=== PATIENT | male | born 1955 | race Caucasian/White ===

== ENCOUNTER 2024-04-01 11:57 | Emergency (ER) | payer OTHER, SELFPAY ==
[2024-04-01] VITALS (52 sets, daily range): BP systolic 105–169; BP diastolic 67–109; PULSE 51–87; TEMP 36.5; O2SAT 94–100; BMI 24.4
--- NOTE | 2024-04-01 12:20 | ED_ITS ---
HPI HPI - General Adult General Chief complaint: Extremity Injury, Upper Stated complaint: UPPER EXTREMITY INJURY, LEFT Time Seen by Provider: 04/01/24 12:19 Source: patient Mode of arrival: Wheelchair History of Present Illness HPI narrative: Patient presenting to the emergency department for evaluation of left upper extremity pain. Patient states that he was walking 2 dogs, another dog was coming at him, and the dogs he was walking pulled. Patient states that he has had pain in pain, decreased range of motion of the left shoulder. Did not fall the ground, did not hit his head, is only having pain in the shoulder. No complaints at this time Related Data Home Medications ?Medication ?Instructions ?Recorded ?Confirmed No Known Home Medications 04/01/24 04/01/24 Allergies Allergy/AdvReac Type Severity Reaction Status Date / Time No Known Drug Allergies Allergy Verified 04/01/24 12:05 Opioid HPI Opioid Management Most Recent Opioid Data: Last Pain Scale 10 04/01/24 12:58 Last MAR Pain Assessment 04/01/24 12:23 Review of Systems ROS Narrative Negative unless otherwise stated in the HPI Exam Narrative Exam Narrative: General: NAD, AAOx3, no distress Respiratory: respiratory effort normal, speaks in full sentences, no tripod position, no accessory muscle use. Lungs clear to auscultation without rhonchi, wheezes, rales Cardiac: Regular rate and rhythm, no edema, regular s1/s2, no m/g/r Abdomen: Soft, ND/NT. No evidence of fluid wave. No pulsatile masses on exam, rebound tenderness, Hernandez sign or pain over Mcburney's point. Ext: Left upper extremity tenderness at the left shoulder, decreased flexion, extension, abduction and adduction secondary to pain, deformity and defect was noted at the glenohumeral joint Skin: Warm, pink and dry. No rashes, dermatoses, petechiae or lesions, 2+ distal pulses, normal sensation and motor other than left upper extremity secondary to pain limitation. Neuro: Speech is clear and appropriate. Normal level of consciousness. Gait and coordination are normal. 5/5 strength in all extremities. Constitutional Vital Signs, click to edit/add: Last Vital Signs Temp 97.7 F 04/01/24 12:01 Pulse 57 L 04/01/24 15:14 Resp 16 04/01/24 15:14 BP 113/77 04/01/24 15:14 Pulse Ox 96 10/06/24 15:14 O2 Del Method Nasal Cannula 04/01/24 12:44 O2 Flow Rate 0 04/01/24 15:14 Course Vital Signs Vital signs: Vital Signs Temperature 97.7 F 04/01/24 12:01 Pulse Rate 60 04/01/24 12:01 Respiratory Rate 18 04/01/24 12:01 Blood Pressure 110/78 04/01/24 12:01 Pulse Oximetry 98 04/01/24 12:01 Oxygen Delivery Method Room Air 04/01/24 12:01 Temperature 97.7 F 04/01/24 12:01 Pulse Rate 57 L 04/01/24 15:14 Respiratory Rate 16 04/01/24 15:14 Blood Pressure 113/77 04/01/24 15:14 Pulse Oximetry 96 04/01/24 15:14 Oxygen Delivery Method Nasal Cannula 04/01/24 12:44 Oxygen Delivery Flow Rate 0 04/01/24 15:14 Medical Decision Making MDM Narrative Medical decision making narrative: [facility] Patient with history as above presented with left shoulder pain. History obtained from patient. Patient was nontoxic, stable. Ambulatory. Exam as above. EKG reviewed. Labs reviewed. Independently reviewed imaging. Reviewed external records. Differential diagnosis considered. Overall presentation is consistent with Left shoulder dislocation 1325 patient has been given bolus of ketamine, 1 mg/kg, traction, countert raction with external rotation was used, reduced without difficulty. 1545 patient has been observed to greater than 60 minutes after his sedation is ended. Patient is alert, oriented x 3, awake, talkative. X-ray results showing potential for scapular abnormality, correlating with point tenderness. Patient has no pain or tenderness to the scapula, did not fall onto his back, shoulder, he was jerked forward and fell just onto the left shoulder with the arm outstretched. Patient was reevaluated multiple times and still has had no pain to the scapula. Likely not clinically correlating. Advanced guidance has been given. Vss, pex is benign at this time. Pt to fu with pcp 1-2 days for reeval, rter should sx worsen, persist or become worrysome in any way. All incidental laboratory studies, EKG, radiologic findings have been noted and discussed with patient. Patient was reevaluated with a benign exam at this time. Pt expressed understanding and agreement with plan of care at this time. Will fu as planned. Pt stable for discharge. Medical Records Medical records reviewed: Yes I reviewed the patient's medical records Discharge Plan Discharge Chief Complaint: Extremity Injury, Upper Clinical Impression: Anterior shoulder dislocation Patient Disposition: Home, Self-Care Time of Disposition Decision: 15:44 Condition: Good Prescriptions / Home Meds: No Action No Known Home Medications Print Language: Greek Additional Instructions: Follow-up with your PCP in the next 1 to 2 days. Return to the emergency department should symptoms worsen or become worrisome in any way. Referrals: MAGO FLOWER [Primary Care Provider] - 1 week Procedures ED Orthopedic Joint Reduction Orthopedic Joint Reduction Joint #1: Time out performed: Yes Side: left Joint reduction location: shoulder Analgesia: procedural sedation Shoulder technique used (if applicable): traction/counter-traction and external rotation Post-reduction neuro exam: intact and no change Post-reduction vascular exam: intact and no change Post-reduction x-ray obtained: Yes Post-reduction x-ray results: other Splint applied: Yes Patient tolerated procedure: well
[2024-04-01] MEDS: MORPHINE SULFATE 4 MG/ML VIAL IV (12:23)
--- NOTE | 2024-04-01 12:30 | XR_ITS ---
The [address] [address] Patient Name: RUDDY PICKERING MRN: [id number] date: 1955 Sex: M Assigned Patient Location: ER Current Patient Location: Accession/Order Number: [id number] Exam Date: 04/01/2024 12:20 Report Date: 04/01/2024 13:32 At the request of: NIKOLE GOODWIN Procedure: XR shoulder LT min 2V EXAM: XR shoulder LT min 2V HISTORY: pain COMPARISON: None. TECHNIQUE: 2 views of left shoulder were obtained. FINDINGS: There is inferior and the anterior dislocation of the humeral head at the glenohumeral joint. There is no clear evidence of a fracture. XR/XR shoulder LT min 2V IMPRESSION: Dislocation of the humeral head. Electronically authenticated by: RAJ CHARLTON Date: 04/01/2024 13:32
--- NOTE | 2024-04-01 13:23 | XR_ITS ---
The [place] [id number] Patient Name: RUDDY PICKERING MRN: [id number] date: 1955 Sex: M Assigned Patient Location: ER Current Patient Location: Accession/Order Number: [id number] Exam Date: 04/01/2024 13:28 Report Date: 04/01/2024 15:29 At the request of: NIKOLE GOODWIN Procedure: XR shoulder LT 1V EXAM: XR shoulder LT 1V HISTORY: post reduction COMPARISON: 04/01/2024 TECHNIQUE: A single view of the left shoulder is performed. FINDINGS: There has been successful reduction of the glenohumeral dislocation. There is slight irregularity to the lateral margin of the scapula. Please clinically correlate for point tenderness in this region. XR/XR shoulder LT 1V IMPRESSION: Reduction of the previously seen dislocation. Slight irregularity to the lateral margin of the scapular body. Please clinically correlate for point tenderness in this region. A dedicated scapular series can be performed, as clinically indicated. Electronically authenticated by: TWYLA MERCADO Date: 04/01/2024 15:29
[2024-04-01] MEDS: KETAMINE HCL 500 MG/5 ML VIAL 80 MG IV (13:28)
== END 2024-04-01 16:21 | disposition home or self-care (01) ==
PROVIDERS: Emergency Provider Emergency Medicine
DX: S43.005A Unspecified dislocation of left shoulder joint, initial encounter (principal); X50.0XXA Overexertion from strenuous movement or load, initial encounter
CPT/HCPCS: 23650; 73020; 73030; 96374; 96375; 99285; J2270

== ENCOUNTER 2025-02-23 18:59 | Emergency (ER) | payer OTHER, SELFPAY ==
--- OUTSIDE RECORDS SUMMARY | 2025-02-23 19:06 | XMS_ITS | CCD ---
Author Organization [facility] Inform ion Partnership [facility] Care Team Providers Care Corpsman Name Role Phone SHAIKH Rafaela BOO Admitting Unavailable SHAIKH Rafaela BOO Attending Unavailable SHAIKH Rafaela BOO Primary Care Unavailable SHAIKH Rafaela BOO Consulting Unavailable Cait KENNEDY, Unavailable Arlen Snyder MD Primary Care Provider Sammy CERVANTES, [place] Unavailable [phone] Sammy [employer], [place] Unavailable [phone] PRANAV MORALES Attending Unavailable ARLEN SNYDER Attending Unavailable JUANA FLOWER Attending Unavailabl e Problems Active Problems Problem Classification Problem Date Documented Da te Episodic/Chronic Abdominal hernia (8 sources) Recurrent right inguinal hernia; Translations: [Unilateral inguinal hernia, without obstruction or gangrene, recurrent] Onset: 11-15-2024 Resolved: 02-07-2025 11-15-2024 Episodic Administrative/social admission (1 source) Persons encountering health services in other specified circumstances; Translations: [PERS ENC [facility] OTH CIRCUMSTANCE] Onset: 04-15-2022 Episodic Disorders of lipid metabolism (1 source) Hyperlipidemia, unspecified; Translations: [HYPERLIPIDEMIA UNSPECIFIED] Onset: 04-15-2022 Chronic Other circulatory disease (4 sources) Elevated blood-pressure reading, without diagnosis of hypertension; Translations: [ELEVATED BP READING W/O DX HTN] Onset: 04-13-2022 Episodic Past or Other Problems Problem Classification Problem Date Documented Da te Episodic/Chronic Joint disorders and dislocations; trauma-related (7 sources) Dislocation of shoulder joint; Translations: [Unspecified dislocation of left shoulder joint, subsequent encounter] Onset: 04-10-2024 Resolved: 02-07-2025 4 Episodic Mood disorders (2 sources) Mood disorders Onset: 02-07-2025 02-07-2025 Other circulatory disease (7 sources) Elevated blood-pressure reading without diagnosis of hypertension; Translations: [Elevated blood-pressure reading, without diagnosis of hypertension] Onset: 04-11-2024 04-11-2024 Episodic Results Test Name Value Interpretation Reference Range Facil ity CBC AUTO DIFFon 04-13-2022 BASO # 0.1 103/ul Normal 0.0-0.1 [facility] Comment on above: Performed By: #### C BC #### [facility] [address] [address] [address] Kristi Amaro Basophils/100 WBC (Bld) 1.2 % Normal 0.2-2.0 [facility] Comment on above: Performed By: #### C BC #### [facility] [address] [place] [address] Dr. Kristi Amaro EO # 0.4 103/ul Normal 0.0-0.7 [facility] Comment on above: Performed By: #### C BC #### [facility] [address] [address] [address] Kristi Amaro Eosinophils/100 WBC (Bld) 4.6 % Normal 0.9-7.0 [facility] Comment on above: Performed By: #### C BC #### [facility] [address] [place] [address] Dr. Kristi Amaro Erythrocyte distribution width (RBC) [Ratio] 13.9 % Normal 11.0-15.0 [facility] Comment on above: Performed By: #### C BC #### [facility] [address] [place] [address] Dr. Kristi Amaro Hematocrit (Bld) [Volume fraction] 50.0 % Normal 42.0-54.0 [facility] Comment on above: Performed By: #### C BC #### [facility] [address] [place] [address] Dr. Kristi Amaro Hemoglobin (Bld) [Mass/Vol] 16.5 g/dL Normal 14.0-18.0 [facility] Comment on above: Performed By: #### C BC #### [facility] [address] [place] [address] Dr. Kristi Aamro IG # 0.08 10e3/ul Critically high 0.00-0.03 [facility] Comment on above: Performed By: #### C BC #### [facility] [address] [place] [address] Dr. Kristi Amaro IG % 1.0 % Critically high 0.0-0.5 [facility] Comment on above: Performed By: #### C BC #### [facility] [address] [place] [address] Dr. Kristi Amaro LYMPH # 1.7 103/ul Normal 1.2-3.8 [facility] Comment on above: Performed By: #### C BC #### [facility] [address] [place] [address] Dr. Kristi Amaro Lymphocytes/100 WBC (Bld) 22.0 % Normal 20.5-60.0 [facility] Comment on above: Performed By: #### C BC #### [facility] [address] [place] [address] Dr. Kristi Amaro MANUAL DIFF REQ NO Normal [facility] Comment on above: Performed By: #### C BC #### [facility] [address] [place] [address] Dr. Kristi Amaro MCH (RBC) [Entitic mass] 31.3 pg Normal 25.9-34.0 [facility] Comment on above: Performed By: #### C BC #### [facility] [address] [place] [address] Dr. Kristi Amaro MCHC (RBC) [Mass/Vol] 33.0 g/dL Normal 29.9-35.2 [facility] Comment on above: Performed By: #### C BC #### [facility] [address] [place] [address] Dr. Kristi Amaro MCV (RBC) [Entitic vol] 94.9 fL Critically high 80.0-94.0 [facility] Comment on above: Performed By: #### C BC #### [facility] [address] [place] [address] Dr. Kristi Amaro MONO # 0.6 103/ul Normal 0.3-0.8 [facility] Comment on above: Performed By: #### C BC #### [facility] [address] [place] [address] Dr. Kristi Amaro Monocytes/100 WBC (Bld) 7.7 % Normal 1.7-12.0 [facility] Comment on above: Performed By: #### C BC #### [facility] [address] [place] [address] Dr. Kristi Amaro NEUT # 4.9 103/ul Normal 1.4-6.5 [facility] Comment on above: Performed By: #### C BC #### [facility] [address] [place] [address] Dr. Kristi Amaro Neutrophils/100 WBC (Bld) 63.5 % Normal 43.0-75.0 [facility] Comment on above: Performed By: #### C BC #### [facility] [address] [place] [address] Dr. Kristi Amaro Platelet mean volume (Bld) [Entitic vol] 11.3 fL Normal 9.5-13.5 [facility] Comment on above: Performed By: #### C BC #### [facility] [address] [place] [address] Dr. Kristi Amaro PLT 275 103/ul Normal 150-450 [facility] Comment on above: Performed By: #### C BC #### [facility] [address] [place] [address] Dr. Kristi Amaro RBC 5.27 106/ul Normal 4.70-6.10 [facility] Comment on above: Performed By: #### C BC #### [facility] [address] [place] [address] Dr. Kristi Amaro WBC 7.7 103/ul Normal 4.0-11.0 [facility] Comment on above: Performed By: #### C BC #### [facility] [address] [place] [address] Dr. Kristi Amaro LIPID PROFILEon 04-13-2022 CHOL-HDL RATIO NORM SEE BELOW Normal [facility] Comment on above: Result Comment: 3.3 - 4.4 LOW RISK 4.4 - 7.1 AVERAGE RISK 7.1 - 11.0 MODERATE RISK >11.0 HIGH RISK Performed By: #### C MP, LIPID #### [facility] [address] [address] [address] Kristi Amaro Cholesterol [Mass/Vol] 169 mg/dL Normal <=200 [facility] Comment on above: Performed By: #### C MP, LIPID #### [facility] [address] [address] [address] Kristi Amaro Cholesterol in HDL [Mass/Vol] 38 mg/dL Critically low 40-60 [facility] Comment on above: Performed By: #### C MP, LIPID #### [facility] [address] [address] [address] Kristi Amaro Cholesterol in LDL [Mass/Vol] 113.8 mg/dL Normal [facility] Comment on above: Performed By: #### C MP, LIPID #### [facility] [address] [address] [address] Kristi Amaro Cholesterol.total/C holesterol in HDL [Mass ratio] 4.4 {ratio} Normal [facility] Comment on above: Performed By: #### C MP, LIPID #### [facility] [address] [address] [address] Kristi Amaro HDL NORMAL > or = 60 mg/dl - LO W CARDIOVASCULAR RISK <40 mg/dl - HIGH CARDIOVASCULAR RISK Normal [facility] Comment on above: Performed By: #### C MP, LIPID #### [facility] [address] [address] [address] Kristi Amaro LDL CALC NORMAL SEE BELOW Normal [facility] Comment on above: Result Comment: <100 mg/dl OPTIMAL 100 - 129 mg/dl NEAR OR ABOVE OPTIMAL 130 - 159 mg/dl BORDERLINE HIGH 160 - 189 mg/dl HIGH >190 mg/dl VERY HIGH Performed By: #### C MP, LIPID #### [facility] [address] [address] [address] Kristi Amaro Triglyceride [Mass/Vol] 86 mg/dL Normal <=150 [facility] Comment on above: Performed By: #### C MP, LIPID #### [facility] [address] [place] [address] Dr. Kristi Amaro VLDL CALC 17.2 mg/dL Normal [facility] Comment on above: Performed By: #### C MP, LIPID #### [facility] [address] [place] [address] Dr. Kristi Amaro PROF 14(COMP METB)on 022 Albumin [Mass/Vol] 3.7 g/dL Normal 3.4-5.0 [facility] Comment on above: Performed By: #### C MP, LIPID #### [facility] [address] [place] [address] Dr. Kristi Amaro Albumin/Globulin [Mass ratio] 0.8 {ratio} Normal [facility] Comment on above: Performed By: #### C MP, LIPID #### [facility] [address] [place] [address] Dr. Kristi Amaro ALP [Catalytic activity/Vol] 55 U/L Normal 46-116 [facility] Comment on above: Performed By: #### C MP, LIPID #### [facility] [address] [place] [address] Dr. Kristi Amaro ALT [Catalytic activity/Vol] 23 U/L Normal 16-63 [facility] Comment on above: Performed By: #### C MP, LIPID #### [facility] [address] [place] [address] Dr. Kristi Amaro Anion gap [Moles/Vol] 10.8 mmol/L Normal [facility] Comment on above: Performed By: #### C MP, LIPID #### [facility] [address] [place] [address] Dr. Kristi Amaro AST [Catalytic activity/Vol] 20 U/L Normal 15-37 [facility] Comment on above: Performed By: #### C MP, LIPID #### [facility] [address] [place] [address] Dr. Kristi Amaro Bilirubin [Mass/Vol] 0.7 mg/dL Normal 0.2-1.0 [facility] Comment on above: Performed By: #### C MP, LIPID #### [facility] [address] [place] [address] Dr. Kristi Amaro Calcium [Mass/Vol] 8.8 mg/dL Normal 8.5-10.1 [facility] Comment on above: Performed By: #### C MP, LIPID #### [facility] [address] [place] [address] Dr. Kristi Amaro Chloride [Moles/Vol] 103 mmol/L Normal 98-107 [facility] Comment on above: Performed By: #### C MP, LIPID #### [facility] [address] [place] [address] Dr. Kristi Amaro CO2 [Moles/Vol] 28.5 mmol/L Normal 21.0-32.0 [facility] Comment on above: Performed By: #### C MP, LIPID #### [facility] [address] [place] [address] Dr. Kristi Amaro Creatinine [Mass/Vol] 1.15 mg/dL Normal 0.70-1.30 [facility] Comment on above: Performed By: #### C MP, LIPID #### [facility] [address] [place] [address] Dr. Kristi Amaro EGFR-AF [place] >60 Normal >=60 [facility] Comment on above: Performed By: #### C MP, LIPID #### [facility] [address] [place] [address] Dr. Kristi Amaro EGFR-NON AF [place] >60 Normal >=60 [facility] Comment on above: Performed By: #### C MP, LIPID #### [facility] [address] [place] [address] Dr. Kristi Amaro Globulin (S) [Mass/Vol] 4.4 g/dL Normal [facility] Comment on above: Performed By: #### C MP, LIPID #### [facility] [address] [place] [address] Dr. Kristi Amaro Glucose [Mass/Vol] 111 mg/dL Critically high 74-106 [facility] Comment on above: Performed By: #### C MP, LIPID #### [facility] [address] [address] [address] Kristi Amaro Potassium [Moles/Vol] 4.3 mmol/L Normal 3.5-5.1 [facility] Comment on above: Performed By: #### C MP, LIPID #### [facility] [address] [place] [address] Dr. Kristi Amaro Protein [Mass/Vol] 8.1 g/dL Normal 6.4-8.2 [facility] Comment on above: Performed By: #### C MP, LIPID #### [facility] [address] [place] [address] Dr. Kristi Amaro Sodium [Moles/Vol] 138 mmol/L Normal 136-145 [facility] Comment on above: Performed By: #### C MP, LIPID #### [facility] [address] [place] [address] Dr. Kristi Amaro Urea nitrogen [Mass/Vol] 13.0 mg/dL Normal 7.0-18.0 [facility] Comment on above: Performed By: #### C MP, LIPID #### [facility] [address] [place] [address] Dr. Kristi Amaro Urea nitrogen/Creatinine [Mass ratio] 11.3 mg/mg Normal [facility] Comment on above: Performed By: #### C MP, LIPID #### [facility] [address] [place] [address] Dr. Kristi Amaro Vital Signs Date Time Vital Sign Value Performing Clinician Ulises mckinney 02-07-2025 13:59-0400 Body height 177.8 cm Arlen Snyder MD Work Phone: [facility] 02-07-2025 13:59-0400 Body mass index (BMI) [Ratio] 25.54 kg/m2 Arlen Snyder MD Work Phone: [facility] 02-07-2025 13:59-0400 Body temperature 97.5 [degF] Arlen Snyder MD Work Phone: [facility] 02-07-2025 13:59-0400 Body weight 80.74 kg Arlen Snyder MD Work Phone: [facility] 02-07-2025 13:59-0400 Diastolic blood pressure 76 mm[Hg] Arlen Snyder MD Work Phone: [facility] 02-07-2025 13:59-0400 Heart rate 78 /min Arlen Snyder MD Work Phone: [facility] 02-07-2025 13:59-0400 Respiratory rate 18 /min Arlen Snyder MD Work Phone: [facility] 02-07-2025 13:59-0400 SaO2% (BldA) [Mass fraction] 99 % Arlen Snyder MD Work Phone: [facility] 02-07-2025 13:59-0400 Systolic blood pressure 132 mm[Hg] Arlen Snyder MD Work Phone: [facility] 04-10-2024 13:16-0400 Body temperature 98.2 [degF] [place]ana Flower [employer] Work Phone: [facility] 04-10-2024 13:16-0400 Body weight 78.11 kg Juana Flower [employer] Work Phone: [facility] 04-10-2024 13:16-0400 Diastolic blood pressure 80 mm[Hg] [place] Flower [employer] Work Phone: [facility] 04-10-2024 13:16-0400 Heart rate 53 /min [place] Flower [employer] Work Phone: [facility] 04-10-2024 13:16-0400 SaO2% (BldA) [Mass fraction] 96 % [place] Flower [employer] Work Phone: [facility] 04-10-2024 13:16-0400 Systolic blood pressure 150 mm[Hg] [place] Flower [employer] Work Phone: [facility] Encounters Encounter Date Encounter Type Care Provider Facility Start: 02-07-2025 End: 02-07-2025 Bamboo flowsheet Arlen Snyder MD Work Phone: [facility] Start: 02-07-2025 End: 02-07-2025 Bamboo flowsheet Arlen Snyder MD Work Phone: [facility] Start: 02-07-2025 End: 02-07-2025 Patient encounter procedure Arlen Snyder MD Work Phone: [facility] Work Phone: Start: 02-07-2025 End: 02-07-2025 Postop follow up visit related to original px Arlen Snyder MD Work Phone: [facility] Comment on above: Medicare annual well ness visit, subsequent (Primary Dx); Recurrent right inguinal hernia Start: 02-07-2025 End: 02-07-2025 ambulatory ARLEN SNYDER Not Available Start: 11-15-2024 End: 11-15-2024 ambulatory PRANAV MORALES Not Available Start: 04-10-2024 End: 04-10-2024 Bamboo flowsheet [place] Flower [employer] Work Phone: [facility] Start: 04-10-2024 End: 04-10-2024 Bamboo flowsheet [place] Flower [employer] Work Phone: [facility] Start: 04-10-2024 End: 04-10-2024 ambulatory JUANA FLOWER Not Available Start: 04-10-2024 End: 04-10-2024 Office outpatient visit 15 minutes [place] Flower [employer] Work Phone: [facility] Comment on above: Dislocation of left shoulder joint, subsequent encounter (Primary Dx); Elevated blood pressure reading in office without diagnosis of hypertension Start: 04-13-2022 End: 04-14-2022 ambulatory SHAIKH Rafaela BOO Facility:[facility] Plan of Treatment Date Care Activity Detail Author Start: 03-27-2027 Screening for malign ant neoplasm of colon [facility] Start: 02-10-2026 End: 02-10-2026 Patient encounter procedure 02/10/2026 1:00 PM EDT Office Visit [facility] [address] [place] [phone] Arlen Snyder MD [address] [place] [phone] [facility] Start: 04-11-2025 Pneumococcal Vaccine : 65+ Years (1 of 1 - PCV) Pneumococcal Vaccine: 65+ Years (1 of 1 - PCV) [facility] Comment on above: Postponed from 02/27 (Patient Refused) Postponed from 02/27 (Patient Refused) Start: 02-25-2025 Influenza vaccination Influenza Vacc ine (#1) [facility] Start: 02-07-2025 End: 02-07-2025 Patient encounter procedure 02/07/2025 2:00 PM EDT [facility] [address] [place] [phone] Arlen Snyder MD [address] [place] [phone] Arrived [facility] Comment on above: Arrived Start: 06-06-2024 Influenza vaccination Influenza Vacc ine (#1) [facility] Comment on above: Postponed from 02/25 (Patient Refused) Start: 02-26-2024 Influenza vaccination Influenza Vacc ine (#1) [facility] Start: 2022 Pneumococcal Vaccine : 65+ Years (1 of 1 - PCV) Pneumococcal Vaccine: 65+ Years (1 of 1 - PCV) [facility] Start: 1955 Medicare Annual Well ness (AWV) Medicare Annual Wellness (AWV) [facility] Start: 1955 Screening for malign ant neoplasm of colon [facility] Immunizations Immunization Date Immunization Notes Care Provider Fa cility 10-30-2023 influenza virus vaccine, unspecified formulation [place] Flower [employer] Work Phone: [facility] Payers Date Payer Category Payer Medicare (Managed Care) [employer] [id number] 2020 Unknown [id number] 1957 Unknown [id number] 1957 Unknown [id number] 1957 Unknown [id number] 1957 Unknown [id number] Social History Date Type Detail Facility Tobacco smoking stat [facility] Tobacco smoking consumption unknown [facility] Start: 1955 Sex assigned at Not on file [facility] Start: 11-15-2024 End: 02-07-2025 Gender identity Not on file [facility] Start: 11-15-2024 Tobacco smoking stat [facility] Never smoked tobacco [facility] Start: 11-15-2024 Tobacco use and exposure Smokeless t obacco non-user [facility] Start: 11-15-2024 End: 02-07-2025 Alcoholic beverage intake Lifetime non-drinker (finding) [facility] Start: 11-15-2024 End: 02-07-2025 History of Social function [facility] Functional Status Date Assessment Result Facility 02-07-2025 Patient Health Quest ionnaire 2 item (PHQ-2) [Reported] [facility] History of Present illness Narrative 02-07-2025 Arlen Snyder MD - 02/07/2025 2:36 PM EDClaudy Snyder MD - 02/07/2025 2:35 PM EDClaudy Snyder MD - 02/07/2025 2:00 PM EDT Note Date & Type Note Facility 02-07-2025 History of Presen t illness Narrative Associated Problem(s): Recurrent right inguinal hernia Hernia returned but not painful and doesn't bother patient. Recommend monitor. If increase in size or pain can refer to [facility]. Warned of signs of incarceration and strangulation. If symptoms worsen go to ER. Associated Problem(s): Medicare annual wellness visit, subsequent Declined labs. Cologuard normal March 2024. Discussed proper diet and regular aerobic exercise. Need aerobic exercise 5-6 days a week for 30 minutes at a time. Smaller portions and limit total calories. Tetanus every 10 years. Advised not to smoke. Images from the original note were not included. Subjective Patient ID: Jaime Mendiola is a 69 y.o. male who presents for Medicare Annual Wellness Visit Subsequent (wellness). Presents for medicare annual wellness visit. Patient feels well today. Weight up 6 pounds in past year. Remains active at home but no regular exercise. Tries to watch diet and eat healthy. Increased fruits and vegetables. Smaller portions and limits snacking. Tries to limit total daily calories. No labs for several years and declined. Cologuard normal March 2024. Seen by surgeon for recurrent inguinal hernia. Prior repair around 1986. Told needs to go to hernia center in larger facility like [facility]. Occasional discomfort but typically doesn't bother patient. Review of Systems Constitutional: Negative for fatigue. Respiratory: Negative for cough, shortness of breath and wheezing. Cardiovascular: Negative for chest pain and palpitations. Gastrointestinal: Negative for abdominal pain, diarrhea, nausea and vomiting. Genitourinary: Negative for dysuria. Objective Physical Exam Constitutional: General: He is not in acute distress. Appearance: Normal appearance. HENT: Head: Normocephalic. Right Ear: Tympanic membrane and ear canal normal. Left Ear: Tympanic membrane and ear canal normal. Eyes: Extraocular Movements: Extraocular movements intact. Pupils: Pupils are equal, round, and reactive to light. Cardiovascular: Rate and Rhythm: Normal rate and regular rhythm. Heart sounds: No murmur heard. No friction rub. No gallop. Pulmonary: Breath sounds: Normal breath sounds. No wheezing, rhonchi or rales. Abdominal: General: Bowel sounds are normal. There is no distension. Palpations: Abdomen is soft. Tenderness: There is no abdominal tenderness. There is no guarding or rebound. Musculoskeletal: Left lower leg: No edema. Neurological: Mental Status: He is alert. Assessment/Plan Problem List Items Addressed This Visit Recurrent right inguinal hernia Hernia returned but not painful and doesn't bother patient. Recommend monitor. If increase in size or pain can refer to [facility]. Warned of signs of incarceration and strangulation. If symptoms worsen go to ER. Medicare annual wellness visit, subsequent - Primary Declined labs. Cologuard normal March 2024. Discussed proper diet and regular aerobic exercise. Need aerobic exercise 5-6 days a week for 30 minutes at a time. Smaller portions and limit total calories. Tetanus every 10 years. Advised not to smoke. documented in this encounter [facility] History of Present illness Narrative 04-11-2024 Juana Flower NP - 04/11/2024 9:19 AM Anisha Flower NP - 04/11/2024 9:17 AM Anisha Flower NP - 04/10/2024 1:00 PM EDT Note Date & Type Note Facility 04-11-2024 History of Presen t illness Narrative Associated Problem(s): Elevated blood pressure reading in office without diagnosis of hypertension Elevated BP reading in office today 150/80. Pt given BP log, advised pt to record BP and bring log back with them to next visit. Encouraged pt to schedule MW[facility] and office visit for routine wellness examination/labs. PT states he will call office when he checks his calendar. Associated Problem(s): Dislocation of left shoulder joint Dislocated L shoulder on 04/01/24; Went to [facility]. Shoulder was reduced back into place. Placed in sling. Discharged home. Pt denies pain, discomfort, cool extremities, numbness, tingling, or any discomfort. Given patient exercises to begin and educated pt on concerning symptoms to monitor for. Pt verbalizes understanding. Images from the original note were not included. Subjective Patient ID: Jaime Mendiola is a 69 y.o. male who presents for Follow-up. HPI Dislocated L shoulder on 04/01/24; Went to [facility]. Shoulder was reduced back into place. Placed in sling. Discharged home. Pt denies pain, discomfort, cool extremities, numbness, tingling, or any discomfort. Given patient exercises to begin and educated pt on concerning symptoms to monitor for. Pt verbalizes understanding. Review of Systems Constitutional: Negative for activity change, appetite change, chills, diaphoresis, fatigue, fever and unexpected weight change. HENT: Negative for congestion, ear pain, rhinorrhea, sinus pressure, sinus pain, sneezing, sore throat, trouble swallowing and voice change. Eyes: Negative for visual disturbance. Respiratory: Negative for cough, chest tightness, shortness of breath and wheezing. Cardiovascular: Negative for chest pain, palpitations and leg swelling. Gastrointestinal: Negative for abdominal distention, abdominal pain, blood in stool, constipation, diarrhea and vomiting. Genitourinary: Negative for decreased urine volume, dysuria, flank pain, frequency, hematuria and urgency. Musculoskeletal: Negative for arthralgias, gait problem, joint swelling and myalgias. Skin: Negative for rash. Neurological: Negative for dizziness, tremors, syncope, weakness, light-headedness and headaches. Psychiatric/Behavioral: Negative for decreased concentration and suicidal ideas. The patient is not nervous/anxious. Hematological: Does not bruise/bleed easily. Endocrine: Negative for cold intolerance, heat intolerance, polydipsia, polyphagia and polyuria. Objective Physical Exam Vitals reviewed. Constitutional: Appearance: Normal appearance. HENT: Head: Normocephalic and atraumatic. Right Ear: Tympanic membrane normal. Left Ear: Tympanic membrane normal. Nose: Nose normal. Mouth/Throat: Mouth: Mucous membranes are moist. Pharynx: Oropharynx is clear. Eyes: Pupils: Pupils are equal, round, and reactive to light. Cardiovascular: Rate and Rhythm: Normal rate and regular rhythm. Pulses: Normal pulses. Heart sounds: Normal heart sounds. Pulmonary: Effort: Pulmonary effort is normal. Breath sounds: Normal breath sounds. Abdominal: General: Abdomen is flat. Bowel sounds are normal. Palpations: Abdomen is soft. Musculoskeletal: General: Normal range of motion. Cervical back: Normal range of motion. Skin: General: Skin is warm and dry. Capillary Refill: Capillary refill takes less than 2 seconds. Neurological: General: No focal deficit present. Mental Status: He is alert and oriented to person, place, and time. Psychiatric: Mood and Affect: Mood normal. Behavior: Behavior normal. Assessment/Plan Problem List Items Addressed This Visit Dislocation of left shoulder joint - Primary Dislocated L shoulder on 04/01/24; Went to [facility]. Shoulder was reduced back into place. Placed in sling. Discharged home. Pt denies pain, discomfort, cool extremities, numbness, tingling, or any discomfort. Given patient exercises to begin and educated pt on concerning symptoms to monitor for. Pt verbalizes understanding. Elevated blood pressure reading in office without diagnosis of hypertension Elevated BP reading in office today 150/80. Pt given BP log, advised pt to record BP and bring log back with them to next visit. Encouraged pt to schedule [facility] and office visit for routine wellness examination/labs. PT states he will call office when he checks his calendar. documented in this encounter [facility] Instructions 04-10-2024 Patient Instructions Note Date & Type Note Facility 04-10-2024 Instructions Juana Flower NP - 04/10/2024 1:00 PM EDT Your blood pressure is TOO HIGH in the office today. Check your blood pressure at home 3 times per week, preferably in the afternoon. Goal <130/90. Record results in blood pressure log. Bring back with you to your next visit. Diet: Eat three meals per day. Breakfast, lunch, and dinner. Avoid snacking. Avoid eating after 5/6 pm. Daily protein GOAL 35% of your intake; 30g per meal. Daily calorie GOAL 1,800-2,000 per day. Consider tracking your food intake on My[employer]Pal or L[employer]It Water: Increase water intake; GOAL 64-80oz of water per day. Exercise: Increase activity. GOAL 30 minutes, 5 days per week. START SLOW. Start with 5 minutes, 5 days per week. Then increase to 10 days, 5 days per week. Continue to increase until you reach the goal. Increase steps; GOAL 10,000 steps per day. Be sure to get adequate sleep; GOAL 6-8 hours of sleep per night. documented in this encounter [facility] Healthcare Evaluation note Note Date & Type Note Facility Evaluation note Diagnosis Dislocation of left shoulder joint, subsequent encounter- Primary Elevated blood pressure reading in office without diagnosis of hypertension documented in this encounter [facility] Healthcare Evaluation note Note Date & Type Note Facility Evaluation note Diagnosis Dislocation of left shoulder joint, subsequent encounter- Primary Elevated blood pressure reading in office without diagnosis of hypertension Medicare annual wellness visit, subsequent- Primary Recurrent right inguinal hernia documented in this encounter [facility] Healthcare Summary Purpose Family History No Family History Records FoundNo Family History Records Found Advance Directives No Advanced Directives Records FoundNo Advanced Directives Records Found Additional Source Comments (unrecognized sect ion and content) No Status Records FoundNo Status Records Found INFORMATION SOURCE (unrecogn ized section and content) DATE CREATED AUTHOR 04/18/2022 [facility] DATE CREATED AUTHOR AUTHOR'S ORGANIZ ATION 02/09/2025 [facility] Care Teams (unrecognized sec tion and content) Corpsman Relationship Specialty Start Date End Date Fawwad, Tobias, MD [address] [place] [phone] PCP - Devoted 02/25/22 Arlen Snyder MD [address] [place] [phone] PCP - General Family Medicine 04/02/24 Juana Flower NP [address] [place] [address] Nurse Practitioner Family Medicine 04/02/24 Corpsman Relationship Specialty Start Date End Date Shaikh Boo MD [address] [place] [phone] PCP - [facility]oted 02/25/22 Arlen Snyder MD [address] [place] [phone] PCP - General Family Medicine 04/02/24 Juana Flower, MANAGER [employer] [address] [place] [address] Nurse Practitioner Family Medicine 04/02/24 Corpsman Relationship Specialty Start Date End Date Shaikh Boo MD [address] [place] [phone] PCP - Devoted 02/25/22 Arlen Snyder MD [address] [place] [phone] PCP - General Family Medicine 04/02/24 Juana Flower NP [address] [place] [phone] Nurse Practitioner Family Medicine 04/02/24 Corpsman Relationship Specialty Start Date End Date Shaikh Boo MD [address] [place] [address] PCP - Devoted 02/25/22 Arlen Snyder MD [address] [place] [address] PCP - General Family Medicine 04/02/24 Reason for Visit (unrecogniz ed section and content) Reason Comments Follow-up Reason Comments Medicare Annual Wellness Visit Subsequen t wellness FOR RECORDS PERTAINING TO PATIENTS WHO ARE OR HAVE BEEN ENROLLED IN A CHEMICAL DEPENDENCY/SUBSTANCEABUSE PROGRAM, SOME INFORMATION MAY BE OMITTED. This clinical summary was aggregated from multiple sources. Caution should be exercised in using it in the provision of clinical care. This summary normalizes information from multiple sources, and as a consequence, information in this document may materially change the coding, format and clinical context of patient data. In addition, data may be omitted in some cases. CLINICAL DECISIONS SHOULD BE BASED ON THE PRIMARY CLINICAL RECORDS. [employer] provides no warranty or guarantee of the accuracy or completeness of information in this document.
[2025-02-23 19:10] VITALS: BP 142/96; PULSE 71; TEMP 36.6; O2SAT 96; BMI 25.5
--- NOTE | 2025-02-23 19:34 | ED_ITS ---
Documented by User: FRANNIE JARVIS 02/23/25 22:01 HPI - Abdominal Pain General Chief Complaint: Abdominal Pain Stated Complaint: abd pain Time Seen by Provider: 02/23/25 19:10 Source: patient Mode of arrival: Wheelchair Limitations: no limitations History of Present Illness HPI narrative: 69-year-old male with a history of right inguinal hernia repair in the and was re-eval by a surgeon about 5 months ago but the surgeon would not revise it at that time. . He reports that the hernia typically lies partly in his scrotal area and is usually not very much pain, but this morning it appears higher, firm, and very painful which brought him into the ED for eval. He denies bowel or urinary changes, fever, or nausea. He reports poor oral intake and feeling dehydrated. He has no other past medical history and does not take any regular medications. Related Data Home Medications ?Medication ?Instructions ?Recorded ?Confirmed No Known Home Medications 04/01/2401/27 Allergies Allergy/AdvReac Type Severity Reaction Status Date / Time No Known Drug Allergies Allergy Verified 02/23/25 19:16 PFSH PFSH Social History Little interest or pleasure in doing things: not at all Feeling down, depressed, or hopeless: not at all Exam Narrative Exam Narrative: General: Alert and oriented, appears dehydrated with dry, cracked lips, appears uncomfortable. Vital Signs: BP 142/96 mmHg, HR 71 bpm, RR 20, afebrile. HEENT: Mucous membranes very dry, otherwise unremarkable. Cardiac: Regular rate and rhythm, no murmurs, rubs, or gallops. Respiratory: Lungs clear to auscultation bilaterally. Abdomen: Soft overall, tender to palpation in the lower quadrants. No rebound or guarding. Inguinal/Genitourinary: Large right inguinal hernia, firm and very tender to palpation. No other abnormalities of the genitals. Extremities: No edema, pulses intact. Neuro: Alert and oriented ?3, no focal deficits. Skin: Warm, dry, no rashes. Constitutional Vital Signs, click to edit/add: Last Vital Signs Temp 97.8 F 02/23/25 19:10 Pulse 77 02/24/25 00:22 Resp 18 02/24/25 00:22 BP 133/87 02/24/25 00:22 Pulse Ox 96 02/24/25 00:22 O2 Del Method Room Air 02/24/25 00:22 Course Vital Signs Vital signs: Vital Signs Temperature 97.8 F 02/23/25 19:10 Pulse Rate 71 02/23/25 19:10 Respiratory Rate 20 02/23/25 19:10 Blood Pressure 142/96 H 02/23/25 19:10 Pulse Oximetry 96 02/23/25 19:10 Oxygen Delivery Method Room Air 02/23/25 19:10 Temperature 97.8 F 02/23/25 19:10 Pulse Rate 77 02/24/25 00:22 Respiratory Rate 18 02/24/25 00:22 Blood Pressure 133/87 02/24/25 00:22 Pulse Oximetry 96 02/24/25 00:22 Oxygen Delivery Method Room Air 02/24/25 00:22 MDM - Abdominal Pain MDM Narrative Medical decision making narrative: 69-year-old male with a remote history of right inguinal hernia repair in the and was eval by his surgeon about 5 months ago and was told that he did not do repairs. H has not seen any other surgeon. The hernia, normally partly in the scrotal area, appears higher, firm, and very painful this morning, which is it not typically this painful. He denies bowel or urinary changes, fever, or nausea. Exam shows a large, firm, very tender right inguinal mass with lower inguinal area that is tenderness; patient is dehydrated but hemodynamically stable. Labs notable for WBC 17, raising concern for inflammatory or infectious complication such as incarceration or strangulation. CT scan of the abdomen and pelvis is pending, and urine studies are pending to assess for any urinary involvement. Patient is NPO in anticipation of possible operative intervention and is receiving IV fluids and pain management as needed. Patient will be disposition by Dr. Kwon, ED attending. Medical Records Attestation: I reviewed the patient's medical records. Lab Data Attestation: I reviewed the patient's lab results. Labs: Lab Results 02/23/25 02/23/25 Range/Units 19:32 22:05 WBC 17.0 H (4.0-11.0) 10^3/uL RBC 5.56 (4.70-6.10) 10^6/uL Hgb 17.0 (14.0-18.0) g/dL Hct 50.2 (42.0-54.0) % MCV 90.3 (80.0-94.0) fL MCH 30.6 (25.9-34.0) pg MCHC 33.9 (29.9-35.2) g/dL RDW 13.8 (11.0-15.0) % Plt Count 297 (150-450) 10^3/uL MPV 10.7 (9.5-13.5) fL Neut % (Auto) 88.1 H (43.0-75.0) % Lymph % (Auto) 6.3 L (20.5-60.0) % [place] % (Auto) 4.2 (1.7-12.0) % Eos % (Auto) 0.5 L (0.9-7.0) % Baso % (Auto) 0.4 (0.2-2.0) % Neut # (Auto) 15.0 H (1.4-6.5) 10^3/uL Lymph # (Auto) 1.1 L (1.2-3.8) 10^3/uL [place] # (Auto) 0.7 (0.3-0.8) 10^3/uL Eos # (Auto) 0.1 (0.0-0.7) 10^3/uL Baso # (Auto) 0.1 (0.0-0.1) 10^3/uL Abs Immat Gran (auto) 0.08 H (0.00-0.03) 10^3/uL Imm/Tot Granulo (auto) 0.5 (0.0-0.5) % Sodium 137 (136-145) mmol/L Potassium 4.3 (3.5-5.1) mmol/L Chloride 100 (98-107) mmol/L Carbon Dioxide 25.6 (21.0-32.0) mmol/L Anion Gap 15.7 BUN 19.0 H (7.0-18.0) mg/dL Creatinine 1.03 (0.70-1.30) mg/dL Est GFR ( Amer) >60 (>=60 mL/min/1.73m^2) Est GFR (Non-Af Amer) >60 (>=60 mL/min/1.73m^2) BUN/Creatinine Ratio 18.4 Glucose 137 H (74-106) mg/dL Lactate 1.1 (0.4-2.0) mmol/L Calcium 9.3 (8.5-10.1) mg/dL Total Bilirubin 0.9 (0.2-1.0) mg/dL AST 26 (15-37) U/L ALT 33 (16-63) U/L Alkaline Phosphatase 68 (46-116) U/L Total Protein 8.8 H (6.4-8.2) g/dL Albumin 4.0 (3.4-5.0) g/dL Globulin 4.8 g/dL Albumin/Globulin Ratio 0.8 Urine Color Yellow (YELLOW) Urine Clarity Clear (CLEAR) Urine pH 5.5 (5.0-9.0) Ur Specific [place] 1.010 (1.005-1.025) Urine Protein Negative (NEG/TRACE) mg/dL Urine Glucose (UA) Negative (NEGATIVE) mg/dL Urine Ketones Trace A (NEGATIVE) mg/dL Urine Occult Blood Moderate A (NEGATIVE) Urine Nitrite Negative (NEGATIVE) Urine Bilirubin Negative (NEGATIVE) Urine Urobilinogen 0.2 (0.2-1.0) EU/dL Ur Leukocyte Esterase Negative (NEGATIVE) Urine RBC 0-2 (0-2) #/HPF Urine WBC 0-2 A (NONE SEEN) #/HPF Ur Squamous Epith Cells None seen (NONE/RARE) #/LPF Urine Crystals None seen (None Seen) #/HPF Urine Bacteria None seen (NONE SEEN) #/HPF Urine Casts None seen (NONE SEEN) #/LPF Urine Mucus None seen (NONE SEEN) Ur Culture Indicated? No Discharge Plan Discharge Chief Complaint: Abdominal Pain Clinical Impression: Hernia, inguinal, right, Small bowel obstruction Patient Disposition: [facility] Discharge Location: [facility] Discharge Date/Time: 02/24/25 00:48 Documented by User: Davin Kwon MD 02/24/25 06:39 HPI - Abdominal Pain General Chief Complaint: Abdominal Pain Stated Complaint: abd pain Time Seen by Provider: 02/23/25 19:10 Related Data Home Medications ?Medication ?Instructions ?Recorded ?Confirmed No Known Home Medications 04/01/2401/27 Allergies Allergy/AdvReac Type Severity Reaction Status Date / Time No Known Drug Allergies Allergy Verified 02/23/25 19:16 PFSH PFSH Social History Little interest or pleasure in doing things: not at all Feeling down, depressed, or hopeless: not at all Exam Constitutional Vital Signs, click to edit/add: Last Vital Signs Temp 97.8 F 02/23/25 19:10 Pulse 77 02/24/25 00:22 Resp 18 02/24/25 00:22 BP 133/87 02/24/25 00:22 Pulse Ox 96 02/24/25 00:22 O2 Del Method Room Air 02/24/25 00:22 Course Vital Signs Vital signs: Vital Signs Temperature 97.8 F 02/23/25 19:10 Pulse Rate 71 02/23/25 19:10 Respiratory Rate 20 02/23/25 19:10 Blood Pressure 142/96 H 02/23/25 19:10 Pulse Oximetry 96 02/23/25 19:10 Oxygen Delivery Method Room Air 02/23/25 19:10 Temperature 97.8 F 02/23/25 19:10 Pulse Rate 77 02/24/25 00:22 Respiratory Rate 18 02/24/25 00:22 Blood Pressure 133/87 02/24/25 00:22 Pulse Oximetry 96 02/24/25 00:22 Oxygen Delivery Method Room Air 02/24/25 00:22 MDM - Abdominal Pain MDM Narrative Medical decision making narrative: 69-year-old male with a remote history of right inguinal hernia repair in the 1980s and was eval by his surgeon about 5 months ago and was told that he did no t do repairs. H has not seen any other surgeon. The hernia, normally partly in the scrotal area, appears higher, firm, and very painful this morning, which is it not typically this painful. He denies bowel or urinary changes, fever, or nausea. Exam shows a large, firm, very tender right inguinal mass with lower inguinal area that is tenderness; patient is dehydrated but hemodynamically stable. Labs notable for WBC 17, raising concern for inflammatory or infectious complication such as incarceration or strangulation. CT scan of the abdomen and pelvis is pending, and urine studies are pending to assess for any urinary involvement. Patient is NPO in anticipation of possible operative intervention and is receiving IV fluids and pain management as needed. Patient will be disposition by Dr. Kwon, ED attending. care transferred at end of APC shift. CT returned with findings of large right inguinal hernia and partial SBO. Discussed with Gen. Surgeon Dr Durham at [facility] and patient accepted to his service Lab Data Labs: Lab Results 02/23/25 02/23/25 Range/Units 19:32 22:05 WBC 17.0 H (4.0-11.0) 10^3/uL RBC 5.56 (4.70-6.10) 10^6/uL Hgb 17.0 (14.0-18.0) g/dL Hct 50.2 (42.0-54.0) % MCV 90.3 (80.0-94.0) fL MCH 30.6 (25.9-34.0) pg MCHC 33.9 (29.9-35.2) g/dL RDW 13.8 (11.0-15.0) % Plt Count 297 (150-450) 10^3/uL MPV 10.7 (9.5-13.5) fL Neut % (Auto) 88.1 H (43.0-75.0) % Lymph % (Auto) 6.3 L (20.5-60.0) % [place] % (Auto) 4.2 (1.7-12.0) % Eos % (Auto) 0.5 L (0.9-7.0) % Baso % (Auto) 0.4 (0.2-2.0) % Neut # (Auto) 15.0 H (1.4-6.5) 10^3/uL Lymph # (Auto) 1.1 L (1.2-3.8) 10^3/uL [place] # (Auto) 0.7 (0.3-0.8) 10^3/uL Eos # (Auto) 0.1 (0.0-0.7) 10^3/uL Baso # (Auto) 0.1 (0.0-0.1) 10^3/uL Abs Immat Gran (auto) 0.08 H (0.00-0.03) 10^3/uL Imm/Tot Granulo (auto) 0.5 (0.0-0.5) % Sodium 137 (136-145) mmol/L Potassium 4.3 (3.5-5.1) mmol/L Chloride 100 (98-107) mmol/L Carbon Dioxide 25.6 (21.0-32.0) mmol/L Anion Gap 15.7 BUN 19.0 H (7.0-18.0) mg/dL Creatinine 1.03 (0.70-1.30) mg/dL Est GFR ( Amer) >60 (>=60 mL/min/1.73m^2) Est GFR (Non-Af Amer) >60 (>=60 mL/min/1.73m^2) BUN/Creatinine Ratio 18.4 Glucose 137 H (74-106) mg/dL Lactate 1.1 (0.4-2.0) mmol/L Calcium 9.3 (8.5-10.1) mg/dL Total Bilirubin 0.9 (0.2-1.0) mg/dL AST 26 (15-37) U/L ALT 33 (16-63) U/L Alkaline Phosphatase 68 (46-116) U/L Total Protein 8.8 H (6.4-8.2) g/dL Albumin 4.0 (3.4-5.0) g/dL Globulin 4.8 g/dL Albumin/Globulin Ratio 0.8 Urine Color Yellow (YELLOW) Urine Clarity Clear (CLEAR) Urine pH 5.5 (5.0-9.0) Ur Specific [place] 1.010 (1.005-1.025) Urine Protein Negative (NEG/TRACE) mg/dL Urine Glucose (UA) Negative (NEGATIVE) mg/dL Urine Ketones Trace A (NEGATIVE) mg/dL Urine Occult Blood Moderate A (NEGATIVE) Urine Nitrite Negative (NEGATIVE) Urine Bilirubin Negative (NEGATIVE) Urine Urobilinogen 0.2 (0.2-1.0) EU/dL Ur Leukocyte Esterase Negative (NEGATIVE) Urine RBC 0-2 (0-2) #/HPF Urine WBC 0-2 A (NONE SEEN) #/HPF Ur Squamous Epith Cells None seen (NONE/RARE) #/LPF Urine Crystals None seen (None Seen) #/HPF Urine Bacteria None seen (NONE SEEN) #/HPF Urine Casts None seen (NONE SEEN) #/LPF Urine Mucus None seen (NONE SEEN) Ur Culture Indicated? No Discharge Plan Discharge Chief Complaint: Abdominal Pain Clinical Impression: Hernia, inguinal, right, Small bowel obstruction Patient Disposition: [facility] Discharge Location: [facility] Discharge Date/Time: 02/24/25 00:48
[2025-02-23 19:46] LABS: Hematocrit 50.2 % (42.0-54.0); Hemoglobin 17.0 g/dL (14.0-18.0); Immature Granulocytes Abs Auto 0.08 10^3/uL (0.00-0.03); Immature Granulocytes Pct Auto 0.5 % (0.0-0.5); Lymphocytes Absolute Auto 1.1 10^3/uL (1.2-3.8); Mean Corpuscular HGB Conc 33.9 g/dL (29.9-35.2); Mean Corpuscular Hemoglobin 30.6 pg (25.9-34.0); Mean Corpuscular Volume 90.3 fL (80.0-94.0); Platelet Count 297 10^3/uL (150-450); Red Blood Count 5.56 10^6/uL (4.70-6.10); White Blood Count 17.0 10^3/uL (4.0-11.0)
[2025-02-23] MEDS: 0.9 % SODIUM CHLORIDE 1,000 ML 999 ML IV (19:53)
[2025-02-23] MEDS: MORPHINE SULFATE 2 MG/ML SYRINGE 4 MG IV (19:54)
[2025-02-23 19:59] LABS: Alanine Aminotransferase 33 U/L (16-63); Albumin Globulin Ratio 0.8; Albumin Level 4.0 g/dL (3.4-5.0); Alkaline Phosphatase 68 U/L (46-116); Anion Gap 15.7; Aspartate Amino Transferase 26 U/L (15-37); Blood Urea Nitrogen 19.0 mg/dL (7.0-18.0); Calcium 9.3 mg/dL (8.5-10.1); Carbon Dioxide 25.6 mmol/L (21.0-32.0); Chloride 100 mmol/L (98-107); Estimated GFR (African America >60 (>=60 mL/min/1.73m^2); Estimated GFR (Non-African Ame >60 (>=60 mL/min/1.73m^2); Globulin 4.8 g/dL; Glucose 137 mg/dL (74-106); Potassium 4.3 mmol/L (3.5-5.1); Sodium 137 mmol/L (136-145); Total Protein 8.8 g/dL (6.4-8.2)
[2025-02-23 20:02] LABS: Lactate/Lactic Acid 1.1 mmol/L (0.4-2.0)
[2025-02-23 21:00] VITALS: BP 140/91; PULSE 65; O2SAT 98
[2025-02-23 22:15] LABS: Glucose Urine UA NEGATIVE (NEGATIVE)
[2025-02-23 22:22] LABS: Cast Seen? NONE SEEN #/LPF (NONE SEEN); Crystals Seen? None Seen #/HPF (None Seen); Urine Culture Indicated NO
[2025-02-23] MEDS: KETOROLAC TROMETHAMINE 30 MG/ML VIAL IVP (22:38)
[2025-02-24 00:22] VITALS: BP 133/87; PULSE 77; O2SAT 96
== END 2025-02-24 00:48 | disposition short-term general hospital (02) ==
PROVIDERS: Physician Assistant; Emergency Provider Internal Medicine; PCP Family Medicine
DX: K40.31 Unilateral inguinal hernia, with obstruction, without gangrene, recurrent (principal)
CPT/HCPCS: 36415; 74177; 80053; 81001; 83605; 85025; 96361; 96374; 96375; 99285; J1885; J2270; J2405; Q9967